=== PATIENT | male | born 1955 | race Caucasian/White ===

== ENCOUNTER 2017-06-22 12:44 | Inpatient (IN) | payer OTHER ==
[2017-06-22 14:58] VITALS: BMI 26.8
--- NOTE | 2017-06-22 16:56 | HP ---
Admission ROS [facility] Chief Complaint: I am here I want Rehab Allergies/Adverse Reactions: Allergies Allergy/AdvReac Type Severity Reaction Status Date / Time No Known Allergies Allergy Verified 06/22/17 16:15 History of Present Illness: Patient is a 62 yo male with a history of Heroine use, however patient is on a MMTP with a dose of 170 mg QD, and patient would benefit from rehab at this time for further treatment. Pending verification. Exam Limitations: No Limitations - Ebola screening Have you traveled outside of the country in the last 21 days: No (N) Have you had contact with anyone from an Ebola affected area: No Have you been sick,other than usual withdrawal symptoms: No Do you have a fever: No - Review of Systems Constitutional: Changes in sleep, Unintentional Wgt. Loss EENT: reports: Nose Congestion, Other (Missing teeth / dental problems) Respiratory: reports: No Symptoms reported Cardiac: reports: No Symptoms Reported GI: reports: Constipated, Diarrhea, Indigestion : reports: No Symptoms Reported Musculoskeletal: reports: Back Pain, Joint Pain, Muscle Pain Integumentary: reports: No Symptoms Reported Neuro: reports: No Symptoms reported Endocrine: reports: No Symptoms Reported Hematology: reports: Anemia Psychiatric: reports: Judgement Intact, Orientated x3, Anxious Other Systems: Reviewed and Negative Patient History - Patient Medical History Hx Anemia: Yes Hx Asthma: No Hx Chronic Obstructive Pulmonary Disease (COPD): No Hx Cancer: No Hx Cardiac Disorders: No Hx Congestive Heart Failure: No Hx Hypertension: Yes Hx Hypercholesterolemia: Yes Hx Pacemaker: No HX Cerebrovascular Accident: No Hx Seizures: No Hx Dementia: No Hx Diabetes: Yes Hx Gastrointestinal Disorders: Yes (acid reflux) Hx Liver Disease: No Hx Genitourinary Disorders: No Hx Sexually Transmitted Disorders: No Hx Renal Disease (ESRD): No Hx Thyroid Disease: No Hx Human Immunodeficiency Virus (HIV): No (Negative) Hx Hepatitis C: Yes Hx Depression: No (Denies ) Hx Suicide Attempt: No (Denies ) Hx Bipolar Disorder: No (Denies ) Hx Schizophrenia: No Other Medical History: Insomnia - Patient Surgical History Past Surgical History: Yes Hx Neurologic Surgery: No Hx Cataract Extraction: No Hx Cardiac Surgery: No Hx Lung Surgery: No Hx Breast Surgery: No Hx Breast Biopsy: No Hx Abdominal Surgery: No Hx Appendectomy: No Hx Cholecystectomy: No Hx Genitourinary Surgery: No Hx Section: No Hx Orthopedic Surgery: No Other Surgical History: removal of kidney stones in 1999 Anesthesia Reaction: No - PPD History Previous Implant?: Yes Documented Results: Negative w/o proof Implanted On Prior [facility] Admission?: No PPD to be Administered?: Yes - Reproductive History Patient is a Female of Child Bearing Age (11 -55 yrs old): No - Smoking Cessation Smoking history: Current every day smoker Have you smoked in the past 12 months: Yes Aproximately how many cigarettes per day: 40 Hx Chewing Tobacco Use: No Initiated information on smoking cessation: Yes 'Breaking Loose' booklet given: 06/22/17 - Substance & Tx. History Hx Alcohol Use: No Hx Substance Use: Yes Substance Use Type: Heroin Hx Substance Use Treatment: No - Substances Abused Heroin Route: Injection Frequency: Daily Amount used: 3-4 bags Age of first use: 28 Date of Last Use: 06/21/17 Family Disease History - Family Disease History Family Disease History: Diabetes: Father (alive, [place]), Mother (), Heart Disease: Father Admission Physical Exam S - Vital Signs Vital Signs: Vital Signs - 24 hr 06/22/17 14:56 Temperature 96.8 F L Pulse Rate 81 Respiratory 20 Rate Blood Pressure 126/69 - Physical General Appearance: Yes: Appropriately Dressed, Disheveled, Anxious HEENTM: Yes: Rhinorrhea, Other (Missing teeth) Respiratory: Yes: Within Normal Limits, Lungs Clear Neck: Yes: Within Normal Limits, Supple Breast: Yes: Within Normal Limits Cardiology: Yes: Within Normal Limits, Regular Rhythm, Regular Rate, S1, S2 Abdominal: Yes: Within Normal Limits, Normal Bowel Sounds Genitourinary: Yes: Within Normal Limits Back: Yes: Normal Inspection Musculoskeletal: Yes: full range of Motion, Back pain, Muscle Pain Extremities: Yes: Within Normal Limits Neurological: Yes: Fully Oriented, Alert, Normal Mood/Affect, Normal Response Integumentary: Yes: Normal Color, Track [place] Lymphatic: Yes: Within Normal Limits - Diagnostic (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 Comment: Pending Verification (2) Diabetes mellitus Current Visit: Yes Status: Chronic Qualifiers: Diabetes mellitus type: type 2 Diabetes mellitus complication status: without complication Diabetes mellitus extermination supervisor insulin use: without extermination supervisor use Qualified Code(s): E11.9 - Type 2 diabetes mellitus without complications (3) Hypercholesteremia Current Visit: Yes Status: Chronic (4) HTN (hypertension) Current Visit: Yes Status: Chronic Qualifiers: Hypertension type: essential hypertension Qualified Code(s): I10 - Essential (primary) hypertension (5) Chronic generalized pain Current Visit: Yes Status: Chronic (6) Acid reflux Current Visit: Yes Status: Chronic Qualifiers: Esophagitis presence: without esophagitis Qualified Code(s): K21.9 - Gastro -esophageal reflux disease without esophagitis (7) Anemia Current Visit: Yes Status: Chronic Qualifiers: Anemia type: unspecified type Qualified Code(s): D64.9 - Anemia, unspecified (8) Tinea pedis Current Visit: Yes Status: Chronic Qualifiers: Laterality: bilateral Qualified Code(s): B35.3 - Tinea pedis (9) Dry skin Current Visit: Yes Status: Chronic [facility] Breath Alcohol Content Breath Alcohol Content: 0 Urine Drug Screen - Results Drug Screen Negative: No Urine Drug Screen Results: OPI-Opiates, MTD-Methadone
[2017-06-22] MEDS ORDERED: NICOTINE POLACRILEX 4 MG GUM BC PRN (17:08)
[2017-06-22] MEDS ORDERED: MAG HYDROX/AL HYDROX/SIMETH 30 ML UNIT-DOSE CUP PO PRN (17:08)
[2017-06-22] MEDS ORDERED: MAGNESIUM HYDROX 2400MG/30ML ORAL SUSPENSION 30 ML CUP PO PRN (17:08)
[2017-06-22] MEDS ORDERED: hydrOXYzine PAMOATE 50 MG CAPSULE (FP) PO PRN (17:08)
[2017-06-22] MEDS ORDERED: P-EPHED 60MG/TRIPROLIDI 2.5MG TABLET PO PRN (17:08)
[2017-06-22] MEDS ORDERED: LOPERAMIDE HCL 2 MG CAPSULE PO PRN (17:08)
[2017-06-22] MEDS ORDERED: guaiFENesin/D-METHORPHAN HB 10 ML UNIT-DOSE CUPS PO PRN (17:08)
[2017-06-22] MEDS ORDERED: MENTHOL/PHENOL 1 EACH UD MM PRN (17:08)
[2017-06-22] MEDS ORDERED: ACETAMINOPHEN 325 MG TABLET (FP) PO PRN (17:08)
[2017-06-22] MEDS ORDERED: MAGNESIUM CITRATE 300 ML BOTTLE PO PRN (17:08)
[2017-06-22] MEDS ORDERED: AMMONIUM LACTATE 12% CREAM 140 GM TUBE TP PRN (17:11)
[2017-06-22] MEDS ORDERED: TUBERCULIN PPD 5 TU/0.1ML VIAL ID ONE (19:22)
[2017-06-22] MEDS: THIAMINE HCL 100 MG TABLET (FP) PO SCH (21:50)
[2017-06-22] MEDS: PATIENT'S OWN MEDICATION (NON-FORMULARY) (Atorvastatin Ca [Lipitor] 40 MG) PO SCH (23:16)
[2017-06-22] MEDS: ASCORBIC ACID PO SCH (23:16)
[2017-06-22] MEDS: PATIENT'S OWN MEDICATION (NON-FORMULARY) (Famotidine [Pepcid -] 40 MG) PO SCH (23:16)
[2017-06-22 23:24] LABS: URINE APPEARANCE SLCLOUDY; URINE BILIRUBIN NEGATIVE (NEGATIVE); URINE BLOOD NEGATIVE (NEGATIVE); URINE COLOR YELLOW; URINE GLUCOSE (UA) NEGATIVE (NEGATIVE); URINE KETONE TRACE (NEGATIVE); URINE LEUK ESTERASE TRACE (NEGATIVE); URINE NITRITE NEGATIVE (NEGATIVE); URINE PROTEIN NEGATIVE (NEGATIVE)
[2017-06-22 23:43] LABS: EPI CELLS RARE /HPF (FEW); URINE HYALINE CAST 7 /lpf; URINE MUCUS RARE
[2017-06-23] MEDS: PATIENT'S OWN MEDICATION (NON-FORMULARY) (Metformin Hcl [Glucophage] 1,000 MG) PO SCH ×2 (06:34→16:39)
--- NOTE | 2017-06-23 09:46 | EKG ---
Test Reason : Blood Pressure : / mmHG Vent. Rate : 048 BPM Atrial Rate : 048 BPM P-R Int : 178 ms QRS Dur : 086 ms QT Int : 502 ms P-R-T Axes : 064 038 072 degrees QTc Int : 448 ms SINUS BRADYCARDIA NONSPECIFIC ST AND T WAVE ABNORMALITY ABNORMAL ECG NO PREVIOUS ECGS AVAILABLE Confirmed by MD Kane, Long ([id number]) on 06/23/2017 9:45:37 AM Referred By: Confirmed By:Long Middleton MD
[2017-06-23] MEDS ORDERED: MULTIVITAMINS (DAILY MVI) TABLET (FP) PO SCH (10:00)
[2017-06-23] MEDS: NICOTINE 21 MG/24 HOURS TOPICAL PATCH TD SCH (10:07)
[2017-06-23] MEDS: PRENATAL VITAMINS W/ FOLIC ACID TABLET (FP) PO SCH (10:07)
[2017-06-23] MEDS: PATIENT'S OWN MEDICATION (NON-FORMULARY) (Lisinopril [Zestril] 40 MG) PO SCH (10:07)
[2017-06-23] MEDS: PATIENT'S OWN MEDICATION (NON-FORMULARY) (Ferrous Sulfate [Feosol] 325 MG) PO SCH (10:07)
[2017-06-23] MEDS: ASCORBIC ACID PO SCH ×2 (10:07→21:56)
[2017-06-23] MEDS ORDERED: METHADONE HCL 40 MG DISPERSABLE TABLET PO SCH (10:15)
[2017-06-23] MEDS ORDERED: METHADONE HCL 10 MG TABLET ONE (10:38)
[2017-06-23] MEDS ORDERED: METHADONE HCL 40 MG DISPERSABLE TABLET ONE (10:40)
[2017-06-23] MEDS: METHADONE 160 MG, METHADONE 10 MG PO SCH (10:43)
[2017-06-23] MEDS ORDERED: FLU VACCINE QUAD 60 MCG/0.5 ML (MDV 17-18) IM ONE (12:00)
[2017-06-23 12:27] LABS: HEMATOCRIT 39.8 % (35.4-49); HEMOGLOBIN 12.3 GM/dL (11.7-16.9); MCH 26.2 pg (25.7-33.7); MEAN CELL VOLUME 84.5 fl (80-96); MEAN PLT VOLUME 8.3 fl (7.5-11.1); PLATELET COUNT 179 K/MM3 (134-434); RBC 4.71 M/mm3 (4.00-5.60); RDW 16.3 % (11.9-15.9); WHITE BLOOD COUNT 6.3 K/mm3 (4.0-10.0)
[2017-06-23 12:36] LABS: ALBUMIN 3.3 g/dl (3.4-5.0); ALK PHOS 64 U/L (45-117); ANION GAP 10 (8-16); BILIRUBIN,TOTAL 0.5 mg/dL (0.2-1.0); BLOOD UREA NITROGEN 17 mg/dL (7-18); CALCIUM 8.7 mg/dL (8.5-10.1); CHLORIDE 100 mmol/L (98-107); CO2 29 mmol/L (21-32); CREATININE 0.8 mg/dL (0.7-1.3); GLUCOSE,RANDOM 184 mg/dL (74-106); POTASSIUM 4.1 mmol/L (3.5-5.1); SGOT/AST 23 U/L (15-37); SGPT/ALT 28 U/L (12-78); SODIUM 139 mmol/L (136-145); TOT PROT 6.9 g/dl (6.4-8.2)
--- NOTE | 2017-06-23 13:28 | EKG ---
Test Reason : Blood Pressure : / mmHG Vent. Rate : 048 BPM Atrial Rate : 048 BPM P-R Int : 182 ms QRS Dur : 102 ms QT Int : 508 ms P-R-T Axes : 062 041 066 degrees QTc Int : 453 ms SINUS BRADYCARDIA OTHERWISE NORMAL ECG WHEN COMPARED WITH ECG OF 22-JUN-2017 22:52, NO SIGNIFICANT CHANGE WAS FOUND Confirmed by GERTRUDIS LUNA MD ([id number]) on 06/23/2017 1:27:51 PM Referred By: Confirmed By:GERTRUDIS LUNA MD
[2017-06-23] MEDS: THIAMINE HCL 100 MG TABLET (FP) PO SCH (21:54)
[2017-06-23] MEDS: PATIENT'S OWN MEDICATION (NON-FORMULARY) (Famotidine [Pepcid -] 40 MG) PO SCH (21:56)
[2017-06-23] MEDS: PATIENT'S OWN MEDICATION (NON-FORMULARY) (Atorvastatin Ca [Lipitor] 40 MG) PO SCH (21:56)
[2017-06-24] MEDS: IBUPROFEN 400 MG TABLET (FP) PO PRN (02:55)
[2017-06-24] MEDS ORDERED: METHADONE HCL 40 MG DISPERSABLE TABLET ONE (03:28)
[2017-06-24] MEDS ORDERED: METHADONE HCL 10 MG TABLET ONE (03:28)
[2017-06-24] MEDS: PATIENT'S OWN MEDICATION (NON-FORMULARY) (Metformin Hcl [Glucophage] 1,000 MG) PO SCH ×2 (06:08→17:16)
[2017-06-24] MEDS: METHADONE 160 MG, METHADONE 10 MG PO SCH (06:08)
[2017-06-24] MEDS: PATIENT'S OWN MEDICATION (NON-FORMULARY) (Lisinopril [Zestril] 40 MG) PO SCH (10:02)
[2017-06-24] MEDS: PATIENT'S OWN MEDICATION (NON-FORMULARY) (Ferrous Sulfate [Feosol] 325 MG) PO SCH (10:02)
[2017-06-24] MEDS: ASCORBIC ACID PO SCH ×2 (10:03→21:59)
[2017-06-24] MEDS: NICOTINE 21 MG/24 HOURS TOPICAL PATCH TD SCH (10:03)
[2017-06-24] MEDS: PRENATAL VITAMINS W/ FOLIC ACID TABLET (FP) PO SCH (10:03)
--- NOTE | 2017-06-24 11:01 | HP ---
Psychiatrist Admission - Data Date of interview: 06/24/17 Admission source: [facility] Identifying data: This is the first 5n inpatient rehabilitation admission for thsi 62 year old single male, father of 3, unemployed and supported on SSD, [facility]. Medical History: History of anemia, HTN, hypercholesterolemia, acid reflux, Hep C, DM type II, removal of kidney stones. Smokes cigarettes 2 PPD, on MMTP 170 mg /daily. Psychiatric History: Patient reports no history of psychiatric hospitalizations , seen by a psychiatrsit while at [facility] to address insomnia and was on Elavil, but stopped it about 6 months ago due to "heavy sedation" Vital Signs: Vital Signs - 24 hr 06/24/17 06/24/17 06/24/17 00:30 03:30 07:10 Temperature 98.4 F Pulse Rate 54 L Respiratory 16 16 16 Rate Blood Pressure 121/74 Allergies/Adverse Reactions: Allergies Allergy/AdvReac Type Severity Reaction Status Date / Time No Known Allergies Allergy Verified 06/22/17 16:15 Date of last physical exam: 06/22/17 Concur with the findings of this exam: Yes - Substance Abuse/Tx History Hx Alcohol Use: No Hx Substance Use: Yes Substance Use Type: Heroin (daily 2-3 a day, injecting ) Hx Substance Use Treatment: Yes (Parents R People.) Mental Status Exam - Mental Status Exam Alert and Oriented to: Time, Place, Person Cognitive Function: Good Patient Appearance: Well Groomed Mood: Hopeful Affect: Appropriate, Mood Congruent Patient Behavior: Appropriate, Cooperative Speech Pattern: Clear, Appropriate Voice Loudness: Normal Thought Process: Intact, Goal Oriented Thought Disorder: Not Present Hallucinations: Denies Suicidal Ideation: Denies Homicidal Ideation: Denies Insight/Judgement: Fair Sleep: Poorly, Difficulty falling asleep Appetite: Fair Muscle strength/Tone: Normal Gait/Station: Normal Psychiatric Findings - Problem List ([place] 1, 2,3) (1) Opioid dependence Current Visit: Yes Status: Acute (2) Nicotine dependence Current Visit: Yes Status: Acute (3) Insomnia Current Visit: Yes Status: Acute (4) Methadone maintenance therapy patient Current Visit: Yes Status: Chronic Comment: Pending Verification - Initial Treatment Plan Initial Treatment Plan: Discussed indications and properties of Belsomra with the patient, he agreed to start. Continue to monitor progress.
--- NOTE | 2017-06-24 12:35 | EKG ---
Test Reason : Blood Pressure : / mmHG Vent. Rate : 050 BPM Atrial Rate : 050 BPM P-R Int : 164 ms QRS Dur : 100 ms QT Int : 456 ms P-R-T Axes : 053 036 048 degrees QTc Int : 415 ms SINUS BRADYCARDIA OTHERWISE NORMAL ECG WHEN COMPARED WITH ECG OF 23-JUN-2017 07:18, NO SIGNIFICANT CHANGE WAS FOUND Confirmed by ELIZABETH UMANZOR MD ([id number]) on 06/24/2017 12:35:18 PM Referred By: Cheo PATEL Confirmed By:ELIZABETH UMANZOR MD
[2017-06-24] MEDS ORDERED: PT OWN MED DRAWER 7, Y5N ONE (20:02)
[2017-06-24] MEDS: THIAMINE HCL 100 MG TABLET (FP) PO SCH (21:59)
[2017-06-24] MEDS: SUVOREXANT 10 MG TABLET PO SCH (21:59)
[2017-06-24] MEDS: PATIENT'S OWN MEDICATION (NON-FORMULARY) (Atorvastatin Ca [Lipitor] 40 MG) PO SCH (21:59)
[2017-06-24] MEDS: PATIENT'S OWN MEDICATION (NON-FORMULARY) (Famotidine [Pepcid -] 40 MG) PO SCH (21:59)
[2017-06-25] MEDS ORDERED: METHADONE HCL 10 MG TABLET ONE (06:11)
[2017-06-25] MEDS ORDERED: METHADONE HCL 40 MG DISPERSABLE TABLET ONE (06:11)
[2017-06-25] MEDS: PATIENT'S OWN MEDICATION (NON-FORMULARY) (Metformin Hcl [Glucophage] 1,000 MG) PO SCH ×2 (06:12→16:47)
[2017-06-25] MEDS: METHADONE 160 MG, METHADONE 10 MG PO SCH (06:13)
[2017-06-25] MEDS: PRENATAL VITAMINS W/ FOLIC ACID TABLET (FP) PO SCH (10:19)
[2017-06-25] MEDS: NICOTINE 21 MG/24 HOURS TOPICAL PATCH TD SCH (10:20)
[2017-06-25] MEDS: PATIENT'S OWN MEDICATION (NON-FORMULARY) (Ferrous Sulfate [Feosol] 325 MG) PO SCH (10:21)
[2017-06-25] MEDS: PATIENT'S OWN MEDICATION (NON-FORMULARY) (Lisinopril [Zestril] 40 MG) PO SCH (10:21)
[2017-06-25] MEDS: ASCORBIC ACID PO SCH ×2 (10:22→21:48)
[2017-06-25] MEDS ORDERED: METHADONE HCL 40 MG DISPERSABLE TABLET PO SCH (11:07)
--- NOTE | 2017-06-25 11:09 | PN ---
S Progress Note (SOAP) Subjective: requesting decrease in methadone dose says 170mg daily is too high Objective: 06/25/17 11:08 Vital Signs - 24 hr 06/25/17 06/25/17 00:30 07:20 Temperature 97.9 F Pulse Rate 51 L Respiratory 16 16 Rate Blood Pressure 145/71 Laboratory Tests 06/22/17 06/22/17 06/23/17 16:49 21:34 06:33 WBC RBC Hgb Hct MCV MCH MCHC RDW Plt Count MPV Sodium Potassium Chloride Carbon Dioxide Anion Gap BUN Creatinine Creat Clearance w eGFR POC Glucometer 91 102 Random Glucose Calcium Total Bilirubin AST ALT Alkaline Phosphatase Total Protein Albumin Urine Color Yellow Urine Appearance Slcloudy Urine pH 5.0 Ur Specific [place] 1.023 Urine Protein Negative Urine Glucose (UA) Negative Urine Ketones Trace H Urine Blood Negative Urine Nitrite Negative Urine Bilirubin Negative Urine Urobilinogen 2.0 Ur Leukocyte Esterase Negative Urine WBC (Auto) 4 Urine RBC (Auto) 88 Ur Epithelial Cells Rare Hyaline Casts 7 Urine Mucus Rare RPR Titer 06/23/17 06/23/17 06/23/17 08:30 08:30 08:30 WBC 6.3 RBC 4.71 Hgb 12.3 Hct 39.8 MCV 84.5 MCH 26.2 MCHC 31.0 L RDW 16.3 H Plt Count 179 MPV 8.3 Sodium 139 Potassium 4.1 Chloride 100 Carbon Dioxide 29 Anion Gap 10 BUN 17 Creatinine 0.8 Creat Clearance w eGFR > 60 POC Glucometer Random Glucose 184 H Calcium 8.7 Total Bilirubin 0.5 AST 23 ALT 28 Alkaline Phosphatase 64 Total Protein 6.9 Albumin 3.3 L Urine Color Urine Appearance Urine pH Ur Specific [place] Urine Protein Urine Glucose (UA) Urine Ketones Urine Blood Urine Nitrite Urine Bilirubin Urine Urobilinogen Ur Leukocyte Esterase Urine WBC (Auto) Urine RBC (Auto) Ur Epithelial Cells Hyaline Casts Urine Mucus RPR Titer Nonreactive 06/23/17 06/24/17 06/24/17 16:36 06:07 16:39 WBC RBC Hgb Hct MCV MCH MCHC RDW Plt Count MPV Sodium Potassium Chloride Carbon Dioxide Anion Gap BUN Creatinine Creat Clearance w eGFR POC Glucometer 117 114 134 Random Glucose Calcium Total Bilirubin AST ALT Alkaline Phosphatase Total Protein Albumin Urine Color Urine Appearance Urine pH Ur Specific [place] Urine Protein Urine Glucose (UA) Urine Ketones Urine Blood Urine Nitrite Urine Bilirubin Urine Urobilinogen Ur Leukocyte Esterase Urine WBC (Auto) Urine RBC (Auto) Ur Epithelial Cells Hyaline Casts Urine Mucus RPR Titer 06/25/17 06:09 WBC RBC Hgb Hct MCV MCH MCHC RDW Plt Count MPV Sodium Potassium Chloride Carbon Dioxide Anion Gap BUN Creatinine Creat Clearance w eGFR POC Glucometer 118 Random Glucose Calcium Total Bilirubin AST ALT Alkaline Phosphatase Total Protein Albumin Urine Color Urine Appearance Urine pH Ur Specific [place] Urine Protein Urine Glucose (UA) Urine Ketones Urine Blood Urine Nitrite Urine Bilirubin Urine Urobilinogen Ur Leukocyte Esterase Urine WBC (Auto) Urine RBC (Auto) Ur Epithelial Cells Hyaline Casts Urine Mucus RPR Titer Assessment: 06/25/17 11:08 agrees to decrease methadone to 150mg daioy, will review efects and further decrease on onday. advised not to go to quickly becaue of risk of relapse.
[2017-06-25] MEDS: PATIENT'S OWN MEDICATION (NON-FORMULARY) (Famotidine [Pepcid -] 40 MG) PO SCH (21:47)
[2017-06-25] MEDS: PATIENT'S OWN MEDICATION (NON-FORMULARY) (Atorvastatin Ca [Lipitor] 40 MG) PO SCH (21:48)
[2017-06-25] MEDS: THIAMINE HCL 100 MG TABLET (FP) PO SCH (21:50)
[2017-06-25] MEDS: SUVOREXANT 10 MG TABLET PO SCH (21:50)
[2017-06-26] MEDS: IBUPROFEN 400 MG TABLET (FP) PO PRN (01:54)
[2017-06-26] MEDS ORDERED: METHADONE HCL 10 MG TABLET ONE (06:32)
[2017-06-26] MEDS ORDERED: METHADONE HCL 40 MG DISPERSABLE TABLET ONE (06:32)
[2017-06-26] MEDS: METHADONE 120 MG, METHADONE 30 MG PO SCH (06:36)
[2017-06-26] MEDS: PATIENT'S OWN MEDICATION (NON-FORMULARY) (Metformin Hcl [Glucophage] 1,000 MG) PO SCH ×2 (06:39→16:56)
[2017-06-26] MEDS: PRENATAL VITAMINS W/ FOLIC ACID TABLET (FP) PO SCH (10:22)
[2017-06-26] MEDS: PATIENT'S OWN MEDICATION (NON-FORMULARY) (Lisinopril [Zestril] 40 MG) PO SCH (10:23)
[2017-06-26] MEDS: PATIENT'S OWN MEDICATION (NON-FORMULARY) (Ferrous Sulfate [Feosol] 325 MG) PO SCH (10:23)
[2017-06-26] MEDS: NICOTINE 21 MG/24 HOURS TOPICAL PATCH TD SCH (10:24)
[2017-06-26] MEDS: ASCORBIC ACID PO SCH ×2 (10:24→21:42)
[2017-06-26] MEDS: THIAMINE HCL 100 MG TABLET (FP) PO SCH (21:41)
[2017-06-26] MEDS: PATIENT'S OWN MEDICATION (NON-FORMULARY) (Atorvastatin Ca [Lipitor] 40 MG) PO SCH (21:41)
[2017-06-26] MEDS: SUVOREXANT 10 MG TABLET PO SCH (21:42)
[2017-06-26] MEDS: PATIENT'S OWN MEDICATION (NON-FORMULARY) (Famotidine [Pepcid -] 40 MG) PO SCH (21:42)
[2017-06-27] MEDS: IBUPROFEN 400 MG TABLET (FP) PO PRN (01:29)
[2017-06-27] MEDS ORDERED: METHADONE HCL 40 MG DISPERSABLE TABLET ONE (03:32)
[2017-06-27] MEDS ORDERED: METHADONE HCL 10 MG TABLET ONE (03:32)
[2017-06-27] MEDS: METHADONE 120 MG, METHADONE 30 MG PO SCH (06:38)
[2017-06-27] MEDS: PATIENT'S OWN MEDICATION (NON-FORMULARY) (Metformin Hcl [Glucophage] 1,000 MG) PO SCH ×2 (06:40→17:02)
[2017-06-27] MEDS: PRENATAL VITAMINS W/ FOLIC ACID TABLET (FP) PO SCH (10:11)
[2017-06-27] MEDS: NICOTINE 21 MG/24 HOURS TOPICAL PATCH TD SCH (10:11)
[2017-06-27] MEDS: PATIENT'S OWN MEDICATION (NON-FORMULARY) (Lisinopril [Zestril] 40 MG) PO SCH (10:12)
[2017-06-27] MEDS: PATIENT'S OWN MEDICATION (NON-FORMULARY) (Ferrous Sulfate [Feosol] 325 MG) PO SCH (10:12)
[2017-06-27] MEDS: ASCORBIC ACID PO SCH ×2 (10:12→21:40)
[2017-06-27] MEDS: THIAMINE HCL 100 MG TABLET (FP) PO SCH (21:40)
[2017-06-27] MEDS: PATIENT'S OWN MEDICATION (NON-FORMULARY) (Atorvastatin Ca [Lipitor] 40 MG) PO SCH (21:40)
[2017-06-27] MEDS: SUVOREXANT 10 MG TABLET PO SCH (21:41)
[2017-06-27] MEDS: PATIENT'S OWN MEDICATION (NON-FORMULARY) (Famotidine [Pepcid -] 40 MG) PO SCH (21:41)
[2017-06-28] MEDS ORDERED: METHADONE HCL 40 MG DISPERSABLE TABLET ONE (04:05)
[2017-06-28] MEDS ORDERED: METHADONE HCL 10 MG TABLET ONE (04:05)
[2017-06-28] MEDS: METHADONE 120 MG, METHADONE 30 MG PO SCH (06:09)
[2017-06-28] MEDS: PATIENT'S OWN MEDICATION (NON-FORMULARY) (Metformin Hcl [Glucophage] 1,000 MG) PO SCH ×2 (06:11→16:42)
[2017-06-28] MEDS: PRENATAL VITAMINS W/ FOLIC ACID TABLET (FP) PO SCH (10:26)
[2017-06-28] MEDS: ASCORBIC ACID PO SCH ×2 (10:26→21:57)
[2017-06-28] MEDS: PATIENT'S OWN MEDICATION (NON-FORMULARY) (Lisinopril [Zestril] 40 MG) PO SCH (10:27)
[2017-06-28] MEDS: PATIENT'S OWN MEDICATION (NON-FORMULARY) (Ferrous Sulfate [Feosol] 325 MG) PO SCH (10:27)
[2017-06-28] MEDS: NICOTINE 21 MG/24 HOURS TOPICAL PATCH TD SCH (10:28)
--- NOTE | 2017-06-28 15:36 | PN ---
Psychiatric Progress Note Vital Signs: Vital Signs Period Temp Pulse Resp BP Sys/Sr Pulse Ox Last 24 Hr 97.4 F 60-63 16-18 124-155/55-80 Date of Session: 06/28/17 Chief Complaint:: insomnia HPI: Patient is addressing opioid,nicotine dependence comorbid insomnia. Current Medications: Active Medications Generic Name Dose Route Start Last Admin Trade Name Freq PRN Reason Stop Dose Admin Acetaminophen 650 mg 06/22/17 17:08 06/25/17 02:58 Tylenol - PO 650 mg Q4H PRN Administration PAIN Al Hydroxide/Mg Hydroxide 30 ml 06/22/17 17:08 Mylanta Oral Suspension - PO Q6H PRN DYSPEPSIA Amitriptyline HCl 50 mg 06/28/17 22:00 Elavil - PO HS NELI Eucalyptus/Menthol/Phenol/Sorbitol 1 each 06/22/17 17:08 Cepastat Lozenge - MM Q4H PRN SORE THROAT Guaifenesin 10 ml 06/22/17 17:08 Robitussin Dm - PO Q6H PRN COUGH Hydroxyzine Pamoate 50 mg 06/22/17 17:08 Vistaril - PO Q4H PRN AGITATION Ibuprofen 400 mg 06/22/17 17:08 06/27/17 01:29 Motrin - PO 400 mg Q6H PRN Administration SEVERE PAIN Lactic Acid 1 applic 06/22/17 17:11 Lac-Hydrin 12% Cream - TP BID PRN DRY SKIN Loperamide HCl 4 mg 06/22/17 17:08 Imodium - PO Q6H PRN DIARRHEA Magnesium Citrate 300 ml 06/22/17 17:08 Citroma - PO Q48H PRN CONSTIPATION Magnesium Hydroxide 30 ml 06/22/17 17:08 Milk Of Magnesia - PO DAILY PRN CONSTIPATION Methadone HCl 120 mg/ 150 mg 06/26/17 06:00 06/28/17 06:09 Methadone HCl 30 mg PO 06/30/17 10:18 150 mg DAILY@0600 NELI Administration Nicotine 21 mg 06/23/17 10:00 06/28/17 10:28 Nicoderm Patch - TD Not Given DAILY NELI Nicotine Polacrilex 4 mg 06/22/17 17:08 Nicorette Gum - BC Q2H PRN NICOTINE REPLACEMENT RX Non-Formulary Medication 500 mg 06/22/17 22:00 06/28/17 10:26 Ascorbic Acid [Vitamin C -] PO 500 mg BID NELI Administration Non-Formulary Medication 81 mg 06/23/17 10:00 06/28/17 10:26 Aspirin [Asa -] PO 81 mg DAILY NELI Administration Non-Formulary Medication 40 mg 06/22/17 22:00 06/27/17 21:40 Atorvastatin Ca [Lipitor] PO 40 mg HS NELI Administration Non-Formulary Medication 40 mg 06/22/17 22:00 06/27/17 21:41 Famotidine [Pepcid -] PO 40 mg HS NELI Administration Non-Formulary Medication 325 mg 06/23/17 10:00 06/28/17 10:27 Ferrous Sulfate [Feosol] PO 325 mg DAILY NELI Administration Non-Formulary Medication 40 mg 06/23/17 10:00 06/28/17 10:27 Lisinopril [Zestril] PO 40 mg DAILY NELI Administration Non-Formulary Medication 1,000 mg 06/23/17 07:00 06/28/17 06:11 Metformin Hcl [Glucophage] PO 1,000 mg BIDAC NELI Administration Multivit/Folic Acid/Iron 1 tab 06/23/17 10:00 06/28/17 10:26 Vitamins (Sjr) - PO 1 tab DAILY NELI Administration Pseudoephedrine/Triprolidine 1 combo 06/22/17 17:08 Actifed - PO TID PRN NASAL CONGESTION Thiamine HCl 100 mg 06/22/17 22:00 06/27/17 21:40 Vitamin B1 - PO 100 mg HS NELI Administration Current Side Effect: No Lab tests ordered: No Lab tests reviewed: Yes Provider note:: The patient reports that belsomra not effective and he want to switch to elavil, states was on 100 mg in the past and he was sedated, but 50 mg worked better. Side-effects benefits discussed with the patient, will continue to monitor progress. Total face to face time:: 15 Mental Status Exam - Mental Status Exam Alert and Oriented to: Time, Place, Person Cognitive Function: Good Patient Appearance: Well Groomed Mood: Hopeful Affect: Appropriate, Mood Congruent Patient Behavior: Appropriate, Cooperative Speech Pattern: Clear, Appropriate Voice Loudness: Normal Thought Process: Goal Oriented Thought Disorder: Not Present Hallucinations: Denies Suicidal Ideation: Denies Homicidal Ideation: Denies Insight/Judgement: Fair Sleep: Poorly, Difficulty falling asleep Appetite: Fair Muscle strength/Tone: Normal Gait/Station: Other (walks with cane.) Psychiatric Treatment Plan - Problem List (1) Opioid dependence Current Visit: Yes (2) Nicotine dependence Current Visit: Yes (3) Insomnia Current Visit: Yes (4) Methadone maintenance therapy patient Current Visit: Yes Comment: Pending Verification
[2017-06-28] MEDS: AMITRIPTYLINE HCL 25 MG TABLET (FP) PO SCH (21:55)
[2017-06-28] MEDS: THIAMINE HCL 100 MG TABLET (FP) PO SCH (21:55)
[2017-06-28] MEDS: PATIENT'S OWN MEDICATION (NON-FORMULARY) (Atorvastatin Ca [Lipitor] 40 MG) PO SCH (21:56)
[2017-06-28] MEDS: PATIENT'S OWN MEDICATION (NON-FORMULARY) (Famotidine [Pepcid -] 40 MG) PO SCH (21:56)
[2017-06-29] MEDS ORDERED: METHADONE HCL 10 MG TABLET ONE (04:29)
[2017-06-29] MEDS ORDERED: METHADONE HCL 40 MG DISPERSABLE TABLET ONE (04:30)
[2017-06-29] MEDS: METHADONE 120 MG, METHADONE 30 MG PO SCH (06:13)
[2017-06-29] MEDS: PATIENT'S OWN MEDICATION (NON-FORMULARY) (Metformin Hcl [Glucophage] 1,000 MG) PO SCH ×2 (07:13→17:13)
[2017-06-29] MEDS: PRENATAL VITAMINS W/ FOLIC ACID TABLET (FP) PO SCH (10:18)
[2017-06-29] MEDS: ASCORBIC ACID PO SCH ×2 (10:19→21:57)
[2017-06-29] MEDS: PATIENT'S OWN MEDICATION (NON-FORMULARY) (Ferrous Sulfate [Feosol] 325 MG) PO SCH (10:19)
[2017-06-29] MEDS: PATIENT'S OWN MEDICATION (NON-FORMULARY) (Lisinopril [Zestril] 40 MG) PO SCH (10:19)
[2017-06-29] MEDS: NICOTINE 21 MG/24 HOURS TOPICAL PATCH TD SCH (10:20)
--- NOTE | 2017-06-29 13:26 | PN ---
[facility] Progress Note (SOAP) Subjective: no cravings or desire to use, would like to continue detox by 10%, c/o back pain Objective: 06/29/17 13:25 Vital Signs - 24 hr 06/29/17 06/29/17 06/29/17 03:30 07:01 10:00 Temperature 98.0 F Pulse Rate 59 L 63 Respiratory 18 18 Rate Blood Pressure 140/77 128/71 Laboratory Tests 06/22/17 06/22/17 06/23/17 16:49 21:34 06:33 WBC RBC Hgb Hct MCV MCH MCHC RDW Plt Count MPV Sodium Potassium Chloride Carbon Dioxide Anion Gap BUN Creatinine Creat Clearance w eGFR POC Glucometer 91 102 Random Glucose Calcium Total Bilirubin AST ALT Alkaline Phosphatase Total Protein Albumin Urine Color Yellow Urine Appearance Slcloudy Urine pH 5.0 Ur Specific [place] 1.023 Urine Protein Negative Urine Glucose (UA) Negative Urine Ketones Trace H Urine Blood Negative Urine Nitrite Negative Urine Bilirubin Negative Urine Urobilinogen 2.0 Ur Leukocyte Esterase Negative Urine WBC (Auto) 4 Urine RBC (Auto) 88 Ur Epithelial Cells Rare Hyaline Casts 7 Urine Mucus Rare RPR Titer 06/23/17 06/23/17 06/23/17 08:30 08:30 08:30 WBC 6.3 RBC 4.71 Hgb 12.3 Hct 39.8 MCV 84.5 MCH 26.2 MCHC 31.0 L RDW 16.3 H Plt Count 179 MPV 8.3 Sodium 139 Potassium 4.1 Chloride 100 Carbon Dioxide 29 Anion Gap 10 BUN 17 Creatinine 0.8 Creat Clearance w eGFR > 60 POC Glucometer Random Glucose 184 H Calcium 8.7 Total Bilirubin 0.5 AST 23 ALT 28 Alkaline Phosphatase 64 Total Protein 6.9 Albumin 3.3 L Urine Color Urine Appearance Urine pH Ur Specific [place] Urine Protein Urine Glucose (UA) Urine Ketones Urine Blood Urine Nitrite Urine Bilirubin Urine Urobilinogen Ur Leukocyte Esterase Urine WBC (Auto) Urine RBC (Auto) Ur Epithelial Cells Hyaline Casts Urine Mucus RPR Titer Nonreactive 06/23/17 06/24/17 06/24/17 16:36 06:07 16:39 WBC RBC Hgb Hct MCV MCH MCHC RDW Plt Count MPV Sodium Potassium Chloride Carbon Dioxide Anion Gap BUN Creatinine Creat Clearance w eGFR POC Glucometer 117 114 134 Random Glucose Calcium Total Bilirubin AST ALT Alkaline Phosphatase Total Protein Albumin Urine Color Urine Appearance Urine pH Ur Specific [place] Urine Protein Urine Glucose (UA) Urine Ketones Urine Blood Urine Nitrite Urine Bilirubin Urine Urobilinogen Ur Leukocyte Esterase Urine WBC (Auto) Urine RBC (Auto) Ur Epithelial Cells Hyaline Casts Urine Mucus RPR Titer 06/25/17 06/25/17 06/26/17 06:09 16:45 06:35 WBC RBC Hgb Hct MCV MCH MCHC RDW Plt Count MPV Sodium Potassium Chloride Carbon Dioxide Anion Gap BUN Creatinine Creat Clearance w eGFR POC Glucometer 118 152 116 Random Glucose Calcium Total Bilirubin AST ALT Alkaline Phosphatase Total Protein Albumin Urine Color Urine Appearance Urine pH Ur Specific [place] Urine Protein Urine Glucose (UA) Urine Ketones Urine Blood Urine Nitrite Urine Bilirubin Urine Urobilinogen Ur Leukocyte Esterase Urine WBC (Auto) Urine RBC (Auto) Ur Epithelial Cells Hyaline Casts Urine Mucus RPR Titer 06/26/17 06/27/17 06/27/17 16:56 06:39 17:02 WBC RBC Hgb Hct MCV MCH MCHC RDW Plt Count MPV Sodium Potassium Chloride Carbon Dioxide Anion Gap BUN Creatinine Creat Clearance w eGFR POC Glucometer 201 107 107 Random Glucose Calcium Total Bilirubin AST ALT Alkaline Phosphatase Total Protein Albumin Urine Color Urine Appearance Urine pH Ur Specific [place] Urine Protein Urine Glucose (UA) Urine Ketones Urine Blood Urine Nitrite Urine Bilirubin Urine Urobilinogen Ur Leukocyte Esterase Urine WBC (Auto) Urine RBC (Auto) Ur Epithelial Cells Hyaline Casts Urine Mucus RPR Titer 06/28/17 06/28/17 06/29/17 06:07 16:41 06:12 WBC RBC Hgb Hct MCV MCH MCHC RDW Plt Count MPV Sodium Potassium Chloride Carbon Dioxide Anion Gap BUN Creatinine Creat Clearance w eGFR POC Glucometer 122 154 93 Random Glucose Calcium Total Bilirubin AST ALT Alkaline Phosphatase Total Protein Albumin Urine Color Urine Appearance Urine pH Ur Specific [place] Urine Protein Urine Glucose (UA) Urine Ketones Urine Blood Urine Nitrite Urine Bilirubin Urine Urobilinogen Ur Leukocyte Esterase Urine WBC (Auto) Urine RBC (Auto) Ur Epithelial Cells Hyaline Casts Urine Mucus RPR Titer Assessment: 06/29/17 13:25 cont detox from methadone decrease dose to 135mg daily , will reassess on wednesday for further decrease.
[2017-06-29] MEDS: LIDOCAINE 5% TOPICAL PATCH TP SCH (14:24)
[2017-06-29] MEDS: THIAMINE HCL 100 MG TABLET (FP) PO SCH (21:57)
[2017-06-29] MEDS: PATIENT'S OWN MEDICATION (NON-FORMULARY) (Famotidine [Pepcid -] 40 MG) PO SCH (21:57)
[2017-06-29] MEDS: AMITRIPTYLINE HCL 25 MG TABLET (FP) PO SCH (21:58)
[2017-06-29] MEDS: PATIENT'S OWN MEDICATION (NON-FORMULARY) (Atorvastatin Ca [Lipitor] 40 MG) PO SCH (21:58)
[2017-06-29] MEDS: LIDOCAINE PATCH REMOVAL MC SCH (21:59)
[2017-06-30] MEDS: IBUPROFEN 400 MG TABLET (FP) PO PRN (04:10)
[2017-06-30] MEDS ORDERED: METHADONE HCL 10 MG TABLET ONE (05:26)
[2017-06-30] MEDS ORDERED: METHADONE HCL 5 MG TABLET ONE (05:26)
[2017-06-30] MEDS ORDERED: METHADONE HCL 40 MG DISPERSABLE TABLET ONE (05:26)
[2017-06-30] MEDS: METHADONE 120 MG, METHADONE 10 MG, METHADONE 5 MG PO SCH (05:56)
[2017-06-30] MEDS ORDERED: METHADONE 120 MG, METHADONE 30 MG PO SCH (06:00)
[2017-06-30] MEDS ORDERED: METHADONE HCL 40 MG DISPERSABLE TABLET PO SCH (06:00)
[2017-06-30] MEDS: PATIENT'S OWN MEDICATION (NON-FORMULARY) (Metformin Hcl [Glucophage] 1,000 MG) PO SCH ×2 (08:05→16:38)
[2017-06-30] MEDS: ASCORBIC ACID PO SCH ×2 (10:15→21:50)
[2017-06-30] MEDS: PATIENT'S OWN MEDICATION (NON-FORMULARY) (Ferrous Sulfate [Feosol] 325 MG) PO SCH (10:15)
[2017-06-30] MEDS: PATIENT'S OWN MEDICATION (NON-FORMULARY) (Lisinopril [Zestril] 40 MG) PO SCH (10:15)
[2017-06-30] MEDS: LIDOCAINE 5% TOPICAL PATCH TP SCH (10:16)
[2017-06-30] MEDS: NICOTINE 21 MG/24 HOURS TOPICAL PATCH TD SCH (10:16)
[2017-06-30] MEDS: PRENATAL VITAMINS W/ FOLIC ACID TABLET (FP) PO SCH (10:16)
[2017-06-30] MEDS: AMITRIPTYLINE HCL 25 MG TABLET (FP) PO SCH (21:49)
[2017-06-30] MEDS: THIAMINE HCL 100 MG TABLET (FP) PO SCH (21:49)
[2017-06-30] MEDS: PATIENT'S OWN MEDICATION (NON-FORMULARY) (Atorvastatin Ca [Lipitor] 40 MG) PO SCH (21:50)
[2017-06-30] MEDS: PATIENT'S OWN MEDICATION (NON-FORMULARY) (Famotidine [Pepcid -] 40 MG) PO SCH (21:50)
[2017-06-30] MEDS: LIDOCAINE PATCH REMOVAL MC SCH (21:51)
[2017-07-01] MEDS ORDERED: METHADONE HCL 5 MG TABLET ONE (05:49)
[2017-07-01] MEDS ORDERED: METHADONE HCL 10 MG TABLET ONE (05:49)
[2017-07-01] MEDS ORDERED: METHADONE HCL 40 MG DISPERSABLE TABLET ONE (05:49)
[2017-07-01] MEDS: METHADONE 120 MG, METHADONE 10 MG, METHADONE 5 MG PO SCH (06:07)
[2017-07-01] MEDS: PATIENT'S OWN MEDICATION (NON-FORMULARY) (Metformin Hcl [Glucophage] 1,000 MG) PO SCH ×2 (07:35→16:48)
[2017-07-01] MEDS: NICOTINE 21 MG/24 HOURS TOPICAL PATCH TD SCH (10:24)
[2017-07-01] MEDS: PRENATAL VITAMINS W/ FOLIC ACID TABLET (FP) PO SCH (10:24)
[2017-07-01] MEDS: PATIENT'S OWN MEDICATION (NON-FORMULARY) (Lisinopril [Zestril] 40 MG) PO SCH (10:25)
[2017-07-01] MEDS: ASCORBIC ACID PO SCH ×2 (10:25→21:35)
[2017-07-01] MEDS: PATIENT'S OWN MEDICATION (NON-FORMULARY) (Ferrous Sulfate [Feosol] 325 MG) PO SCH (10:26)
[2017-07-01] MEDS: LIDOCAINE 5% TOPICAL PATCH TP SCH (10:27)
[2017-07-01] MEDS: AMITRIPTYLINE HCL 25 MG TABLET (FP) PO SCH (21:34)
[2017-07-01] MEDS: THIAMINE HCL 100 MG TABLET (FP) PO SCH (21:34)
[2017-07-01] MEDS: PATIENT'S OWN MEDICATION (NON-FORMULARY) (Famotidine [Pepcid -] 40 MG) PO SCH (21:35)
[2017-07-01] MEDS: PATIENT'S OWN MEDICATION (NON-FORMULARY) (Atorvastatin Ca [Lipitor] 40 MG) PO SCH (21:35)
[2017-07-01] MEDS: LIDOCAINE PATCH REMOVAL MC SCH (21:36)
[2017-07-02] MEDS ORDERED: METHADONE HCL 5 MG TABLET ONE (02:38)
[2017-07-02] MEDS ORDERED: METHADONE HCL 10 MG TABLET ONE (02:39)
[2017-07-02] MEDS ORDERED: METHADONE HCL 40 MG DISPERSABLE TABLET ONE (02:39)
[2017-07-02] MEDS: METHADONE 120 MG, METHADONE 10 MG, METHADONE 5 MG PO SCH (06:07)
[2017-07-02] MEDS: PATIENT'S OWN MEDICATION (NON-FORMULARY) (Metformin Hcl [Glucophage] 1,000 MG) PO SCH ×2 (06:10→16:57)
[2017-07-02] MEDS: LIDOCAINE 5% TOPICAL PATCH TP SCH (10:15)
[2017-07-02] MEDS: PRENATAL VITAMINS W/ FOLIC ACID TABLET (FP) PO SCH (10:15)
[2017-07-02] MEDS: NICOTINE 21 MG/24 HOURS TOPICAL PATCH TD SCH (10:15)
[2017-07-02] MEDS: ASCORBIC ACID PO SCH ×2 (10:17→22:05)
[2017-07-02] MEDS: PATIENT'S OWN MEDICATION (NON-FORMULARY) (Lisinopril [Zestril] 40 MG) PO SCH (10:17)
[2017-07-02] MEDS: PATIENT'S OWN MEDICATION (NON-FORMULARY) (Ferrous Sulfate [Feosol] 325 MG) PO SCH (10:17)
[2017-07-02] MEDS: PATIENT'S OWN MEDICATION (NON-FORMULARY) (Atorvastatin Ca [Lipitor] 40 MG) PO SCH (22:03)
[2017-07-02] MEDS: PATIENT'S OWN MEDICATION (NON-FORMULARY) (Famotidine [Pepcid -] 40 MG) PO SCH (22:05)
[2017-07-02] MEDS: AMITRIPTYLINE HCL 25 MG TABLET (FP) PO SCH (22:06)
[2017-07-02] MEDS: THIAMINE HCL 100 MG TABLET (FP) PO SCH (22:06)
[2017-07-02] MEDS: LIDOCAINE PATCH REMOVAL MC SCH (22:07)
[2017-07-03] MEDS ORDERED: METHADONE HCL 5 MG TABLET ONE (02:52)
[2017-07-03] MEDS ORDERED: METHADONE HCL 40 MG DISPERSABLE TABLET ONE (02:53)
[2017-07-03] MEDS ORDERED: METHADONE HCL 10 MG TABLET ONE (02:53)
[2017-07-03] MEDS: PATIENT'S OWN MEDICATION (NON-FORMULARY) (Metformin Hcl [Glucophage] 1,000 MG) PO SCH ×2 (06:05→16:34)
[2017-07-03] MEDS: METHADONE 120 MG, METHADONE 10 MG, METHADONE 5 MG PO SCH (06:06)
[2017-07-03] MEDS: PRENATAL VITAMINS W/ FOLIC ACID TABLET (FP) PO SCH (10:06)
[2017-07-03] MEDS: ASCORBIC ACID PO SCH ×2 (10:06→21:44)
[2017-07-03] MEDS: NICOTINE 21 MG/24 HOURS TOPICAL PATCH TD SCH (10:06)
[2017-07-03] MEDS: PATIENT'S OWN MEDICATION (NON-FORMULARY) (Ferrous Sulfate [Feosol] 325 MG) PO SCH (10:07)
[2017-07-03] MEDS: PATIENT'S OWN MEDICATION (NON-FORMULARY) (Lisinopril [Zestril] 40 MG) PO SCH (10:07)
[2017-07-03] MEDS: LIDOCAINE 5% TOPICAL PATCH TP SCH (10:07)
[2017-07-03] MEDS: PATIENT'S OWN MEDICATION (NON-FORMULARY) (Atorvastatin Ca [Lipitor] 40 MG) PO SCH (21:43)
[2017-07-03] MEDS: THIAMINE HCL 100 MG TABLET (FP) PO SCH (21:43)
[2017-07-03] MEDS: AMITRIPTYLINE HCL 25 MG TABLET (FP) PO SCH (21:43)
[2017-07-03] MEDS: PATIENT'S OWN MEDICATION (NON-FORMULARY) (Famotidine [Pepcid -] 40 MG) PO SCH (21:44)
[2017-07-03] MEDS: LIDOCAINE PATCH REMOVAL MC SCH (21:45)
[2017-07-04] MEDS ORDERED: METHADONE HCL 5 MG TABLET ONE (05:16)
[2017-07-04] MEDS ORDERED: METHADONE HCL 40 MG DISPERSABLE TABLET ONE (05:17)
[2017-07-04] MEDS ORDERED: METHADONE HCL 10 MG TABLET ONE (05:17)
[2017-07-04] MEDS: METHADONE 120 MG, METHADONE 10 MG, METHADONE 5 MG PO SCH (05:54)
[2017-07-04] MEDS: PATIENT'S OWN MEDICATION (NON-FORMULARY) (Metformin Hcl [Glucophage] 1,000 MG) PO SCH ×2 (06:51→16:32)
[2017-07-04] MEDS: PATIENT'S OWN MEDICATION (NON-FORMULARY) (Ferrous Sulfate [Feosol] 325 MG) PO SCH (09:36)
[2017-07-04] MEDS: PATIENT'S OWN MEDICATION (NON-FORMULARY) (Lisinopril [Zestril] 40 MG) PO SCH (09:36)
[2017-07-04] MEDS: PRENATAL VITAMINS W/ FOLIC ACID TABLET (FP) PO SCH (09:36)
[2017-07-04] MEDS: NICOTINE 21 MG/24 HOURS TOPICAL PATCH TD SCH (09:37)
[2017-07-04] MEDS: ASCORBIC ACID PO SCH ×2 (09:37→21:40)
[2017-07-04] MEDS: LIDOCAINE 5% TOPICAL PATCH TP SCH (09:37)
[2017-07-04] MEDS: PATIENT'S OWN MEDICATION (NON-FORMULARY) (Famotidine [Pepcid -] 40 MG) PO SCH (21:40)
[2017-07-04] MEDS: AMITRIPTYLINE HCL 25 MG TABLET (FP) PO SCH (21:40)
[2017-07-04] MEDS: PATIENT'S OWN MEDICATION (NON-FORMULARY) (Atorvastatin Ca [Lipitor] 40 MG) PO SCH (21:40)
[2017-07-04] MEDS: THIAMINE HCL 100 MG TABLET (FP) PO SCH (21:40)
[2017-07-04] MEDS: LIDOCAINE PATCH REMOVAL MC SCH (21:42)
[2017-07-05] MEDS ORDERED: METHADONE HCL 5 MG TABLET ONE (03:58)
[2017-07-05] MEDS ORDERED: METHADONE HCL 10 MG TABLET ONE (03:58)
[2017-07-05] MEDS ORDERED: METHADONE HCL 40 MG DISPERSABLE TABLET ONE (03:59)
[2017-07-05] MEDS: METHADONE 120 MG, METHADONE 10 MG, METHADONE 5 MG PO SCH (06:07)
[2017-07-05] MEDS: PATIENT'S OWN MEDICATION (NON-FORMULARY) (Metformin Hcl [Glucophage] 1,000 MG) PO SCH ×2 (07:01→16:30)
[2017-07-05] MEDS: ASCORBIC ACID PO SCH ×2 (10:17→21:36)
[2017-07-05] MEDS: PRENATAL VITAMINS W/ FOLIC ACID TABLET (FP) PO SCH (10:17)
[2017-07-05] MEDS: PATIENT'S OWN MEDICATION (NON-FORMULARY) (Lisinopril [Zestril] 40 MG) PO SCH (10:18)
[2017-07-05] MEDS: PATIENT'S OWN MEDICATION (NON-FORMULARY) (Ferrous Sulfate [Feosol] 325 MG) PO SCH (10:18)
[2017-07-05] MEDS: NICOTINE 21 MG/24 HOURS TOPICAL PATCH TD SCH (10:19)
[2017-07-05] MEDS: LIDOCAINE 5% TOPICAL PATCH TP SCH (10:19)
[2017-07-05] MEDS: THIAMINE HCL 100 MG TABLET (FP) PO SCH (21:35)
[2017-07-05] MEDS: AMITRIPTYLINE HCL 25 MG TABLET (FP) PO SCH (21:35)
[2017-07-05] MEDS: PATIENT'S OWN MEDICATION (NON-FORMULARY) (Famotidine [Pepcid -] 40 MG) PO SCH (21:36)
[2017-07-05] MEDS: PATIENT'S OWN MEDICATION (NON-FORMULARY) (Atorvastatin Ca [Lipitor] 40 MG) PO SCH (21:36)
[2017-07-05] MEDS: LIDOCAINE PATCH REMOVAL MC SCH (21:37)
[2017-07-06] MEDS ORDERED: METHADONE 120 MG, METHADONE 10 MG, METHADONE 5 MG PO SCH (06:00)
[2017-07-06] MEDS ORDERED: METHADONE HCL 10 MG TABLET ONE (06:10)
[2017-07-06] MEDS ORDERED: METHADONE HCL 5 MG TABLET ONE (06:10)
[2017-07-06] MEDS ORDERED: METHADONE HCL 40 MG DISPERSABLE TABLET ONE (06:10)
[2017-07-06] MEDS: PATIENT'S OWN MEDICATION (NON-FORMULARY) (Metformin Hcl [Glucophage] 1,000 MG) PO SCH (06:12)
[2017-07-06 07:09] VITALS: TEMP 97.8
[2017-07-06] MEDS: PATIENT'S OWN MEDICATION (NON-FORMULARY) (Lisinopril [Zestril] 40 MG) PO SCH (09:06)
[2017-07-06] MEDS: ASCORBIC ACID PO SCH (09:07)
[2017-07-06] MEDS: PATIENT'S OWN MEDICATION (NON-FORMULARY) (Ferrous Sulfate [Feosol] 325 MG) PO SCH (09:07)
[2017-07-06] MEDS: LIDOCAINE 5% TOPICAL PATCH TP SCH (09:08)
[2017-07-06] MEDS: NICOTINE 21 MG/24 HOURS TOPICAL PATCH TD SCH (09:08)
[2017-07-06] MEDS: PRENATAL VITAMINS W/ FOLIC ACID TABLET (FP) PO SCH (09:08)
--- NOTE | 2017-07-06 10:08 | PN ---
Psychiatric Progress Note Vital Signs: Vital Signs Period Temp Pulse Resp BP Sys/Sr Pulse Ox Last 24 Hr 97.8 F 76-76 -18 120-125/70-71 Date of Session: 07/06/17 Chief Complaint:: discharge visit HPI: Patient is addressing opioid,nicotine dependence comorbid insomnia. ROS: HTN, hypercholesterolemia, acid reflux, Hep C, DM type II medically managed. Current Medications: Active Medications Generic Name Dose Route Start Last Admin Trade Name Freq PRN Reason Stop Dose Admin Acetaminophen 650 mg 06/22/17 17:08 06/25/17 02:58 Tylenol - PO 650 mg Q4H PRN Administration PAIN Al Hydroxide/Mg Hydroxide 30 ml 06/22/17 17:08 Mylanta Oral Suspension - PO Q6H PRN DYSPEPSIA Amitriptyline HCl 50 mg 06/28/17 22:00 07/05/17 21:35 Elavil - PO 50 mg HS NELI Administration Eucalyptus/Menthol/Phenol/Sorbitol 1 each 06/22/17 17:08 Cepastat Lozenge - MM Q4H PRN SORE THROAT Guaifenesin 10 ml 06/22/17 17:08 Robitussin Dm - PO Q6H PRN COUGH Hydroxyzine Pamoate 50 mg 06/22/17 17:08 Vistaril - PO Q4H PRN AGITATION Ibuprofen 400 mg 06/22/17 17:08 06/30/17 04:10 Motrin - PO 400 mg Q6H PRN Administration SEVERE PAIN Lactic Acid 1 applic 06/22/17 17:11 07/02/17 22:04 Lac-Hydrin 12% Cream - TP 1 applic BID PRN Administration DRY SKIN Lidocaine 1 patch 06/29/17 13:58 07/06/17 09:08 Lidoderm Patch - TP 1 patch DAILY NELI Administration Loperamide HCl 4 mg 06/22/17 17:08 Imodium - PO Q6H PRN DIARRHEA Magnesium Citrate 300 ml 06/22/17 17:08 Citroma - PO Q48H PRN CONSTIPATION Magnesium Hydroxide 30 ml 06/22/17 17:08 Milk Of Magnesia - PO DAILY PRN CONSTIPATION Methadone HCl 120 mg/ 135 mg 07/06/17 06:00 07/06/17 06:13 Methadone HCl 10 mg/ Methadone PO 07/13/17 05:59 135 mg HCl 5 mg DAILY@0600 NELI Administration Miscellaneous 1 each 06/29/17 22:00 07/05/17 21:37 Lidoderm Patch Removal MC 1 each DAILY@2200 NELI Administration Nicotine 21 mg 06/23/17 10:00 07/06/17 09:08 Nicoderm Patch - TD Not Given DAILY NELI Nicotine Polacrilex 4 mg 06/22/17 17:08 Nicorette Gum - BC Q2H PRN NICOTINE REPLACEMENT RX Non-Formulary Medication 500 mg 06/22/17 22:00 07/06/17 09:07 Ascorbic Acid [Vitamin C -] PO 500 mg BID NELI Administration Non-Formulary Medication 81 mg 06/23/17 10:00 07/06/17 09:07 Aspirin [Asa -] PO 81 mg DAILY NELI Administration Non-Formulary Medication 40 mg 06/22/17 22:00 07/05/17 21:36 Atorvastatin Ca [Lipitor] PO 40 mg HS NELI Administration Non-Formulary Medication 40 mg 06/22/17 22:00 07/05/17 21:36 Famotidine [Pepcid -] PO 40 mg HS NELI Administration Non-Formulary Medication 325 mg 06/23/17 10:00 07/06/17 09:07 Ferrous Sulfate [Feosol] PO 325 mg DAILY NELI Administration Non-Formulary Medication 40 mg 06/23/17 10:00 07/06/17 09:06 Lisinopril [Zestril] PO 40 mg DAILY NELI Administration Non-Formulary Medication 1,000 mg 06/23/17 07:00 07/06/17 06:12 Metformin Hcl [Glucophage] PO 1,000 mg BIDAC NELI Administration Multivit/Folic Acid/Iron 1 tab 06/23/17 10:00 07/06/17 09:08 Vitamins (Sjr) - PO 1 tab DAILY NELI Administration Pseudoephedrine/Triprolidine 1 combo 06/22/17 17:08 Actifed - PO TID PRN NASAL CONGESTION Thiamine HCl 100 mg 06/22/17 22:00 07/05/17 21:35 Vitamin B1 - PO 100 mg HS NELI Administration Current Side Effect: No Lab tests ordered: No Lab tests reviewed: Yes Provider note:: Patient has completed today his treatmane and met his goals, will continue to address his issues at [facility], he gained insights into importance of changing attitudes for the utilization of supports to prevent relapses. He verbalized his resolution to continue maintain abstinence and be adherent to every steps of his aftercare plans. Script for Elavil provided, medication well tolerated, no side-effects reported, patient is stable for discharge today. Total face to face time:: 20 Mental Status Exam - Mental Status Exam Alert and Oriented to: Time, Place, Person Cognitive Function: Good Patient Appearance: Well Groomed Mood: Hopeful Affect: Appropriate, Mood Congruent Patient Behavior: Appropriate, Cooperative Speech Pattern: Clear, Appropriate Voice Loudness: Normal Thought Process: Intact, Goal Oriented Thought Disorder: Not Present Hallucinations: Denies Suicidal Ideation: Denies Homicidal Ideation: Denies Insight/Judgement: Fair Sleep: Fair Appetite: Good Muscle strength/Tone: Normal Gait/Station: Normal Psychiatric Treatment Plan - Problem List (1) Opioid dependence Current Visit: Yes (2) Nicotine dependence Current Visit: Yes (3) Insomnia Current Visit: Yes (4) Methadone maintenance therapy patient Current Visit: Yes Comment: Pending Verification
[2017-07-06 11:20] VITALS: BP 117/83; PULSE 80
== END 2017-07-06 11:00 | disposition home or self-care (01) | DRG 895 ==
LOC: YASAS 12:44 → Y5N 17:13
PROVIDERS: ADMIT Psychiatry & Neurology Psychiatry; ATTEND Psychiatry & Neurology Psychiatry
PROC: HZ42ZZZ Group Counseling for Substance Abuse Treatment, Cognitive-Behavioral (ICD-10-PCS; principal; 2017-06-22)
DX: F11.20 Opioid dependence, uncomplicated (principal); F17.210 Nicotine dependence, cigarettes, uncomplicated; I10 Essential (primary) hypertension; E78.00 Pure hypercholesterolemia, unspecified; K21.9 Gastro-esophageal reflux disease without esophagitis; B18.2 Chronic viral hepatitis C; E11.9 Type 2 diabetes mellitus without complications; G89.29 Other chronic pain; L98.8 Other specified disorders of the skin and subcutaneous tissue; B35.3 Tinea pedis; G47.00 Insomnia, unspecified; D64.9 Anemia, unspecified; Z79.84 Long term (current) use of oral hypoglycemic drugs
CPT/HCPCS: 36415; 80053; 81003; 81015; 82962; 85027; 86593; 90688; 93005; 93010